=== PATIENT | male | born 1955 | race Two or more races ===

== ENCOUNTER 2023-04-29 14:40 | Outpatient (CLI) | payer OTHER | END 2023-04-29 14:53 | disposition home or self-care (01) | LOC: RAD 14:40 | PROVIDERS: ATTEND Orthopaedic Surgery | DX: M25.571 Pain in right ankle and joints of right foot (principal); M85.671 Other cyst of bone, right ankle and foot ==

== ENCOUNTER 2023-05-21 07:10 | Outpatient (CLI) | payer OTHER | END 2023-05-21 07:13 | disposition home or self-care (01) | LOC: LAB 07:10 | PROVIDERS: ATTEND Orthopaedic Surgery | DX: D64.89 Other specified anemias (principal); E88.89 Other specified metabolic disorders; D68.8 Other specified coagulation defects; N39.0 Urinary tract infection, site not specified; A49.02 Methicillin resistant Staphylococcus aureus infection, unspecified site ==

== ENCOUNTER → 2023-06-10 11:51 | Outpatient (CLI) | payer OTHER ==
[~2023-06-10] VITALS: Ht 170.2 cm; Wt 93.0 kg
== END | disposition home or self-care (01) ==
LOC: EKG 11:51 → LAB 11:51
PROVIDERS: ATTEND Orthopaedic Surgery
DX: I10 Essential (primary) hypertension (principal); I49.9 Cardiac arrhythmia, unspecified

== ENCOUNTER 2023-06-10 14:57 | Outpatient (CLI) | payer OTHER | END 2023-06-10 15:02 | disposition home or self-care (01) | LOC: TOM 14:57 | PROVIDERS: ATTEND Orthopaedic Surgery | DX: Z76.89 Persons encountering health services in other specified circumstances (principal) ==

== ENCOUNTER → 2023-07-07 | Outpatient (CLI) | payer OTHER | END | disposition home or self-care (01) | LOC: RAD 10:35 | PROVIDERS: ATTEND Orthopaedic Surgery | DX: D16.21 Benign neoplasm of long bones of right lower limb (principal) ==

== ENCOUNTER 2023-08-11 11:56 | Outpatient (CLI) | payer OTHER | END 2023-08-11 12:01 | disposition home or self-care (01) | LOC: RAD 11:56 | PROVIDERS: ATTEND Orthopaedic Surgery | DX: D16.21 Benign neoplasm of long bones of right lower limb (principal) ==

== ENCOUNTER 2023-10-21 10:37 | Outpatient (CLI) | payer OTHER | END 2023-10-21 10:47 | disposition home or self-care (01) | LOC: RAD 10:37 | PROVIDERS: ATTEND Orthopaedic Surgery | DX: D16.21 Benign neoplasm of long bones of right lower limb (principal) ==

== ENCOUNTER 2024-06-08 09:09 | Outpatient (CLI) | payer OTHER | END 2024-06-08 09:14 | disposition home or self-care (01) | LOC: RAD 09:09 | PROVIDERS: ATTEND Orthopaedic Surgery | DX: D16.21 Benign neoplasm of long bones of right lower limb (principal) ==

== ENCOUNTER → 2025-04-02 07:14 | Outpatient (CLI) | payer OTHER ==
[~2025-04-02] VITALS: Ht 170.2 cm; Wt 94.8 kg
[2025-04-02 07:41] VITALS: BP 142/83
[2025-04-02 08:02] LABS: BASO % 0.5 % (0.1-1.2); EOS # 0.11 (0.04-0.54); EOS % 1.7 % (0.7-7.0); HEMATOCRIT 47.8 % (40.1-51.0); HEMOGLOBIN 16.6 g/dL (13.7-17.5); LYMPH # 1.74 (1.18-3.74); LYMPH % 27.3 % (19.3-53.1); MEAN CORPUSCULAR HEMOGLOBIN 32.7 pg (25.6-32.2); MONO # 0.66 (0.24-0.82); MONO % 10.3 % (4.7-12.5); NEUT # 3.81 (1.56-6.13); NEUT % 59.7 % (34.0-71.1); PLATELET COUNT 171 K/uL (163-369); RED BLOOD COUNT 5.08 M/uL (4.63-6.08); RED CELL DISTRIBUTION WIDTH 12.1 % (11.6-14.4)
[2025-04-02 08:23] LABS: INR 1.04; PARTIAL THROMBOPLASTIN TIME 27.2 SECONDS (22.0-34.0); PROTHROMBIN TIME 11.3 SECONDS (9.0-11.5)
[2025-04-02 08:24] LABS: URINE APPEARANCE Clear; URINE BILIRRUBIN Negative (NEGATIVE); URINE BLOOD Negative; URINE COLOR Yellow; URINE GLUCOSE Negative (NEGATIVE); URINE KETONE Negative (NEGATIVE); URINE LEUKOCYTE Negative; URINE NITRATE Negative; URINE PROTEIN Negative (NEGATIVE); URINE UROBILINOGEN 0.2 E.U./dl
[2025-04-02 08:27] LABS: URINE EPITHELIAL CELLS 1.5 uL (0.0-38.8)
[2025-04-02 08:28] LABS: URINE RBC 1.6 uL (0.0-20.8); URINE WBC 1.4 uL (0.0-23.2)
[2025-04-02 08:28] LABS: ALBUMIN 3.9 gm/dL (3.4-5.0); BILIRUBIN TOTAL 2.38 mg/dL (0.3-1.2); CALCIUM 9.5 mg/dL (8.5-10.1); CREATININE SERUM 1.29 mg/dL (0.70-1.30); GFR 55.22; GLOBULINA 2.7 G/DL (2.4-3.5); POTASSIUM 5.21 mEq/L (3.5-5.1); TOTAL PROTEIN 6.6 gm/dL (6.4-8.2)
[2025-04-02 08:37] LABS: COL EPI 166 SECONDS (82-175)
== END | disposition home or self-care (01) ==
LOC: RAD 07:14
PROVIDERS: ATTEND Orthopaedic Surgery
DX: I10 Essential (primary) hypertension (principal); D64.9 Anemia, unspecified; E88.9 Metabolic disorder, unspecified; D68.8 Other specified coagulation defects; N39.0 Urinary tract infection, site not specified; Z22.322 Carrier or suspected carrier of Methicillin resistant Staphylococcus aureus; E11.8 Type 2 diabetes mellitus with unspecified complications; Z76.89 Persons encountering health services in other specified circumstances

== ENCOUNTER 2025-04-17 04:57 | Day surgery (SDC) | payer OTHER ==
[~2025-04-17 04:57] MED LIST: DAILY VALUE1 EACH PO; ECOTRIN81 MG PO; LIPITOR20 MG; TAMS0.4C PO; VITAMIN D310 MCG/1 M PO; ZYLOPRIM100 M1 PO
[2025-04-17] MEDS ORDERED: CEFAZOLIN SODIUM 1,000 MG VIAL ONE (06:53)
[2025-04-17] MEDS ORDERED: BUPIVACAINE HCL/MPF 0.5% 30ML VIAL ONE (06:59)
== END 2025-04-17 15:35 | disposition home or self-care (01) ==
LOC: CIR.AMB 04:57
PROVIDERS: ATTEND Orthopaedic Surgery
DX: M66.872 Spontaneous rupture of other tendons, left ankle and foot (principal); M66.362 Spontaneous rupture of flexor tendons, left lower leg